=== PATIENT | male | born 1990 | race Caucasian/White ===

== ENCOUNTER 2016-10-13 21:32 | Emergency (ER) | payer MEDICAID ==
[2016-10-13 21:46] VITALS: RESP 16
--- NOTE | 2016-10-13 21:55 | EDPHY ---
H & P Time Seen by Provider: 10/13/16 21:52 HPI/ROS: CHIEF COMPLAINT: Extremity injury HISTORY OF PRESENT ILLNESS: Skateboarding on a long board and fell turning to the right landing on both wrists. Has some pain in the left wrist and abrasion on the left palm, pain in the right wrist and difficulty with extending his the right elbow. Pain in the right elbow. REVIEW OF SYSTEMS: No neck or back pain and no head injury or loss of consciousness. PAST MEDICAL HISTORY: Left wrist fracture and appendectomy. Tetanus up-to- date. Social history: Here with his uncle General Appearance: Alert and conversant, cooperative. Tenderness in the left wrist snuffbox with left palm abrasion but no hand bony tenderness and normal range of motion of all fingers. Normal range of motion of left elbow and nontender in the forearm or arm or shoulder. Cervical and thoracic spine nontender, patient is alert and normally conversant ambulatory without ataxia. Right elbow is unable to extend fully and is tender over the radial head. The right wrist is tender over the dorsal part of the radius but not over the hand and he can make a fist on the right side. Normal right shoulder. Right hand can make a fist and there is no right hand tenderness. Emergency Department course/MDM: Right radial head fracture. Snuffbox tenderness on the left. Plan for right arm sling, pain medication, left arm thumb spica, orthopedic referral. 2210: x-rays reviewed with the patient showed mildly displaced right radial head fracture and normal wrist. Splinted because of snuffbox tenderness. Warned about mandatory orthopedic follow-up this week, possible occult scaphoid fracture. Declined prescription or narcotic pain medication. Smoking Status: Never smoked Constitutional: Initial Vital Signs Temperature (C) 37 C 10/13/16 21:44 Heart Rate 89 10/13/16 21:44 Respiratory Rate 16 10/13/16 21:44 Blood Pressure 132/81 H 10/13/16 21:44 O2 Sat (%) 93 10/13/16 21:44 O2 Delivery Mode Room Air Allergies/Adverse Reactions: Penicillins Allergy (Verified 10/13/16 21:44) shrimp Allergy (Verified 10/13/16 21:44) MDM/Departure - MDM Imaging Results: Imaging Impressions Elbow X-Ray 10/13/16 21:47 Impression: Radial head fracture with mild depression anterior fragment. Wrist X-Ray 10/13/16 21:52 Impression: 1. Normal bilateral wrist series. Wrist X-Ray 10/13/16 21:52 Impression: 1. Normal bilateral wrist series. Procedures: Procedure: Splint placement. A Velcro left thumb spica splint was applied. After application of the splint I returned and re-examined the patient. The splint was adequately immobilizing the joint and distal to the splint the patient's circulation and sensation was intact. Medications Given: Discontinued Medications Ibuprofen (Motrin) 600 mg PO EDNOW ONE Stop: 10/13/16 22:21 Last Admin: 10/13/16 22:23 Dose: 600 mg - Depart Disposition: Home, Routine, Self-Care Clinical Impression: Fracture of radial head, right, closed Qualifiers: Encounter type: initial encounter Fracture alignment: displaced Qualified Code( s): S52.121A - Displaced fracture of head of right radius, initial encounter for closed fracture Abrasion of palm of left hand Qualifiers: Encounter type: initial encounter Qualified Code(s): S60.512A - Abrasion of left hand, initial encounter Sprain of wrist, left Qualifiers: Encounter type: initial encounter Qualified Code(s): S63.502A - Unspecified sprain of left wrist, initial encounter Condition: Good Instructions: Elbow Fracture (ED), Wrist Sprain (ED) Additional Instructions: It is possible that you have a left wrist fracture in the scaphoid bone. Please follow-up with Orthopedics this week as instructed for evaluation of your right elbow fracture as well as for re-evaluation of your wrist. Referrals: Arturo Suarez MD [Medical Doctor] - 2-3 days without fail (Follow-up with Orthopedics this week in the office.)
[2016-10-13] MEDS ORDERED: IBUPROFEN 600 MG TAB PO ONE ×2 (22:19→22:20)
[2016-10-13] MEDS ORDERED: HYDROCOD/APAP 5/325 PREPACK#6 BTL TAKEHOME ONE ×2 (22:47→22:48)
[2016-10-13 23:05] VITALS: BP 117/84; PULSE 102; TEMP 98.2; O2SAT 95
== END 2016-10-13 22:45 | disposition home or self-care (01) ==
DX: S52.121A Displaced fracture of head of right radius, initial encounter for closed fracture (principal); S60.512A Abrasion of left hand, initial encounter; S63.502A Unspecified sprain of left wrist, initial encounter; V00.131A Fall from skateboard, initial encounter; Y99.8 Other external cause status; Y93.51 Activity, roller skating (inline) and skateboarding
CPT/HCPCS: A4565; L3807

== ENCOUNTER 2016-10-23 05:43 | Day surgery (SDC) | payer MEDICAID ==
--- NOTE | 2016-10-22 08:44 | GHP ---
[f rep st] PREOP HISTORY AND PHYSICAL DATE OF ADMISSION: 10/23/2016 DATE OF SURGERY: 10/23/2016. PREOPERATIVE DIAGNOSIS: Displaced right radial head fracture. HPI: This is a 26-year-old male, who fell long boarding on the evening of 10/13/2016. He presented to [facility] complaining of both wrist pain and right elbow pain. X-rays were obtained which were normal at the wrist however, they showed a mildly displaced radial h ead fracture. He was splinted because he had some snuffbox tenderness in his left side and placed i n a sling on his right and he presented to the office for followup. He was evaluated in the office and decision had been made to proceed with an open reduction, internal fixation of his right radial head. PRIOR MEDICAL HISTORY: Nothing. PRIOR SURGICAL HISTORY: Appendectomy. MEDICATIONS: None. ALLERGIES: Penicillin gives him hives. 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 REVIEW OF SYSTEMS: No loss of consciousness. No headaches. No shortness of breath, chest pain. O therwise, review of systems is unremarkable. PHYSICAL EXAM: GENERAL: Healthy-appearing 26-year-old, male alert and oriented x3. VITAL SIGNS: Temperature is 37, heart rate 89, respiratory rate is 16. Blood pressure is 132/81, oxygen saturati on is 93% on room air. HEENT: Normocephalic atraumatic. Extraocular muscles intact. NECK: Suppl e. There is no lymphadenopathy. No JVD. CHEST: Clear to auscultation. CARDIOVASCULAR: Regular rate and rhythm. ABDOMEN: Soft, nontender, nondistended. EXTREMITIES: Focusing on the right elbo w, there is swelling. He does have tenderness over the radial head. He is somewhat hesitant to mov e the elbow. He lacks about 40 degrees of full extension. Can flex to about 100 degrees, 60 degree s pronation and supination 2+ radial pulse. Sensation to light touch is intact at the wrist and carias d. IMAGING: X-rays from [facility] are reviewed. Four views of the elbow show a displ aced radial head fracture. ASSESSMENT: 1. Displaced right radial head fracture. 2. Possible scaphoid fracture, left. PLAN: We will keep him in a thumb spica brace on the left. We will plan on open reduction, interna l fixation, to the radial head. Where this is positioned this will give him problems later. He und erstands that. We will plan on surgery this Wednesday at [facility]. He will be in a splint for the 1st week postoperatively and then into a hinged elbow brace. /[id number]/MODL
[2016-10-23] MEDS ORDERED: CLINDAMYCIN 900 MG/DEXTROSE 50 ML IV ONE (05:56)
[2016-10-23] MEDS ORDERED: LIDOCAINE 1% 2 ML INJ ID PRN (06:18)
[2016-10-23] MEDS ORDERED: LR 1,000 ML IV ONE (06:18)
[2016-10-23] MEDS ORDERED: POLYMYXIN B SULFATE 500,000 UNIT/10 ML SYR IRR ONE (06:40)
[2016-10-23] MEDS ORDERED: BUPIVACAINE 0.5% 30 ML SDV ONE (06:40)
[2016-10-23] MEDS ORDERED: BACITRACIN 50,000 UNITS/10 ML SYR IRR ONE (06:41)
[2016-10-23] MEDS ORDERED: MIDAZOLAM 2 MG/2 ML VIAL IVP ONE (06:55)
--- NOTE | 2016-10-23 06:57 | PDANEPAE ---
ANE History of Present Illness orif elbow ANE Past Medical History - Cardiovascular History Hx Hypertension: No Hx Arrhythmias: No Hx Chest Pain: No Hx Coronary Artery / Peripheral Vascular Disease: No Hx CHF / Valvular Disease: No Hx Palpitations: No - Pulmonary History Hx COPD: No Hx Asthma/Reactive Airway Disease: No Hx Recent Upper Respiratory Infection: No Hx Oxygen in Use at Home: No Hx Sleep Apnea: No Sleep Apnea Screening Result - Last Documented: Negative - Neurologic History Hx Cerebrovascular Accident: No Hx Seizures: No Hx Dementia: No - Endocrine History Hx Diabetes: No - Renal History Hx Renal Disorders: No - Liver History Hx Hepatic Disorders: No - Neurological & Psychiatric Hx Hx Neurological and Psychiatric Disorders: No - Cancer History Hx Cancer: No - Congenital Disorder History Hx Congenital Disorders: No - GI History Hx Gastrointestinal Disorders: No - Other Health History Other Health History: R Radial head fx - Chronic Pain History Chronic Pain: No - Surgical History Prior Surgeries: appy ANE Review of Systems - Exercise capacity METS (RN): 4 METS ANE Patient History - Allergies Allergies/Adverse Reactions: Penicillins Allergy (Verified 10/20/16 16:35) Other-Enter Comments shrimp Allergy (Verified 10/20/16 16:35) Other-Enter Comments - Home Medications Home Medications: NK [No Known Home Meds] 10/20/16 [Last Taken Unknown] - NPO status NPO Since - Liquids (Date): 10/23/16 NPO Since - Liquids (Time): 00:00 NPO Since - Solids (Date): 10/22/16 NPO Since - Solids (Time): 21:00 - Anes Hx Anes Hx: no prior problems - Smoking Hx Smoking Status: Never smoked ANE Labs/Vital Signs - Vital Signs Blood Pressure: 122/82 Heart Rate: 55 Respiratory Rate: 16 O2 Sat (%): 98 Height: 180.34 cm Weight: 74.843 kg ANE Physical Exam - Airway Mallampati Score: Class 2 Mouth exam: normal dental/mouth exam, abrams - Pulmonary Pulmonary: no respiratory distress - Cardiovascular Cardiovascular: regular rate and rhythym - ASA Status ASA Status: II ANE Anesthesia Plan Anesthesia Plan: GA w LMA
--- NOTE | 2016-10-23 06:59 | PDHPUP ---
History & Physical Update H&P update statement: This history and physical update is based on an assessment of the patient which was completed after admission or registration (within 24 hours), but prior to the surgery/procedure. H&P update: H&P reviewed & patient examined, no change in patient's condition since H&P completed
[2016-10-23] MEDS ORDERED: DEXAMETHASONE 4 MG/ML VIAL ONE (07:00)
[2016-10-23] MEDS ORDERED: LIDOCAINE 2% 5 ML SDV ONE (07:01)
[2016-10-23] MEDS ORDERED: KETOROLAC 30 MG/1 ML SDV ONE (07:01)
[2016-10-23] MEDS ORDERED: ONDANSETRON 4 MG/2 ML VIAL ONE ×2 (07:01→08:56)
[2016-10-23] MEDS ORDERED: PROPOFOL 200 MG/20 ML VIAL ONE (07:02)
[2016-10-23] MEDS ORDERED: fentaNYL 100 MCG/2 ML INJ ONE ×2 (07:02→09:12)
[2016-10-23] MEDS ORDERED: MIDAZOLAM 2 MG/2 ML VIAL ONE (07:06)
[2016-10-23] MEDS ORDERED: HYDROmorphONE/DILAUDID 2 MG/ML INJ ONE (07:33)
[2016-10-23] MEDS ORDERED: fentaNYL 100 MCG/2 ML INJ IVP PRN (07:38)
[2016-10-23] MEDS ORDERED: HYDROCODONE/APAP 5/325 TAB PO PRN (07:38)
[2016-10-23] MEDS ORDERED: NALOXONE HCL 0.4 MG/ML INJ IVP PRN (07:38)
[2016-10-23] MEDS ORDERED: LR 500 ML IV PRN (07:38)
[2016-10-23] MEDS ORDERED: ONDANSETRON 4 MG/2 ML VIAL IVP PRN (07:38)
[2016-10-23] MEDS ORDERED: HYDROmorphONE/DILAUDID 1 MG/ML SYR IVP PRN (07:38)
[2016-10-23] MEDS ORDERED: MEPERIDINE 25 MG/ML SYR IVP PRN (07:38)
[2016-10-23] MEDS ORDERED: MIDAZOLAM 2 MG/2 ML VIAL IVP PRN (07:39)
--- NOTE | 2016-10-23 08:12 | POSTOPPROG ---
Post Op Note Date of Operation: 10/23/16 Surgeon: Arturo Suarez Under Baster: nereida laswon Anesthesiologist: alesha Anesthesia: GET(General Endotracheal) Pre-op Diagnosis: rt radial head fx Post-op Diagnosis: same Procedure: ORIF radial head Findings: displaced head fx Inf/Abcess present in the surg proc area at time of surgery?: No EBL: Minimal Complications: none
--- NOTE | 2016-10-23 08:16 | POSTANESTH ---
Post Anesthetic Evaluation Cardiovascular Status: Normal, Stable Respiratory Status: Normal, Stable Level of Consciousness/Mental Status: Can Participate in Eval Pain Control: Adequate, Prn Tx Ordered Nausea/Vomiting Control: Adequate, Prn Tx Ordered Complications Possibly Related to Anesthesia: None Noted
[2016-10-23 09:31] VITALS: PULSE 50; RESP 16; TEMP 97.7
[2016-10-23 10:26] VITALS: BP 115/65; O2SAT 100
--- NOTE | 2016-10-24 10:33 | GOP ---
[f rep st] OPERATIVE REPORT DATE OF OPERATION: 10/23/2016 SURGEON: Arturo Suarez MD ADULT FAMILY HOME PROGRAM MANAGER: Shaan Yo, [employer] COACH, [facility], [place]. ANESTHESIA: General. ANESTHESIOLOGIST: Dr. Mckeon. PREOPERATIVE DIAGNOSIS: Displaced right radial head fracture. POSTOPERATIVE DIAGNOSIS: Displaced right radial head fracture. PROCEDURE PERFORMED: Open reduction, internal fixation, right radial head fracture. FINDINGS: ESTIMATED BLOOD LOSS: Minimal. DESCRIPTION OF PROCEDURE: After appropriate informed consent was obtained, patient taken to the ope rative room and placed supine on the operative table. Timeout performed. Patient was identified, c orrect site was identified, matched with the radiographs available in the room. He received 600 mg clindamycin IV due to his penicillin allergy. Following administration of general endotracheal tube anesthesia by Dr. Mckeon, right elbow was prepped and draped in the usual sterile fashion. All bon y prominences were well padded. I exsanguinated the limb, inflated the tourniquet to 250 mmHg. A s tandard Armond incision was used over the lateral aspect of the elbow. Soft tissues were carefully dissected. The interval between extensor carpi ulnaris and anconeus was exposed. I incised the cap annemarie of the elbow joint. Protected the lateral collateral ligament complex throughout the entirety of the case. I identified the radial head fracture. This was easily elevated up with a [place] eleva tor. K-wire, confirmed their position with AP lateral fluoroscopic images. Drilled the near cortex and placed 2 partially threaded headless screws and countersunk them beneath the cartila ge surface with good purchase on the opposite cortex. Final imaging was obtained which showed [employer] reduction of the fracture. Wound was irrigated. The deep layers were closed with 0 Vicryl. The superficial layers closed with 2-0 Vicryl. Skin was closed with running 3-0 Monocryl stitch. I instilled 30 mL 0.5% Marcaine plain around the incision. Sterile dressing and a posterior elbow splint were applied. He was awakened from anesthesia, taken to the recovery room in satisfactory co ndition. There were no immediate intraoperative complications. Gopal Yo's assistance was requir ed throughout the entire case. TOTAL TOURNIQUET TIME: 33 minutes at 250 mmHg. IMPLANTS: Synthes 3.0 mm partially threaded headless screws x2. HISTORY: The patient is a 26-year-old male, who fell longboarding 10 days ago and sustained a displ aced radial head fracture. He was evaluated in the office and decision was made to proceed with an open reduction, internal fixation. /[id number]/MODL
== END 2016-10-23 11:15 | disposition home or self-care (01) ==
LOC: FSGY 05:43
PROVIDERS: ATTEND Orthopaedic Surgery
PROC: 0PSH04Z Reposition Right Radius with Internal Fixation Device, Open Approach (ICD-10-PCS; principal; 2016-10-23 07:15)
DX: S52.121A Displaced fracture of head of right radius, initial encounter for closed fracture (principal); V00.131A Fall from skateboard, initial encounter; Y93.51 Activity, roller skating (inline) and skateboarding
CPT/HCPCS: 24665; C1769; C1713; J1100; J1170; J1885; J2250; J2405; J2704; J3010